=== PATIENT | female | born 2000 | race Caucasian/White ===

== ENCOUNTER 2022-12-22 11:09 | Inpatient (IN) | payer MEDICAID, SELFPAY ==
[2022-12-22] VITALS (51 sets, daily range): BP systolic 97–123; BP diastolic 60–84; PULSE 69–107; RESP 17; TEMP 36.1–37.1; O2SAT 97–99; BMI 33.5
[2022-12-22 11:11] LABS: Actim Prom Positive
[2022-12-22] MEDS: dextrose 5%-lactated ringers 1,000 ML 125 ML IV ×2 (11:49→23:38)
[2022-12-22] MEDS: ampicillin 2,000 MG in sodium chloride 0.9% (plus) 50 ML 100 MG IV (11:49)
[2022-12-22 12:18] LABS: Basophils % 0.4 %; Eosinophils # 0.1 10^3/uL (0.0-0.8); Eosinophils % 1.1 %; Hematocrit 34.7 % (37.0-47.0); Hemoglobin 11.6 g/dL (11.5-15.3); Lymphocytes # 1.2 10^3/uL (0.8-4.8); Lymphocytes % 14.4 %; Mean Corpuscular HGB Conc 33.4 g/dL (30.0-36.0); Mean Corpuscular Hemoglobin 30.3 pg (28.0-34.0); Mean Corpuscular Volume 90.6 fl (81-99); Mean Platelet Volume 11.4 fL (7.4-10.4); Monocytes # 0.7 10^3/uL (0.2-0.9); Monocytes % 8.5 %; Neutrophils # 6.21 10^3/uL (1.8-7.7); Neutrophils % 74.6 %; Nucleated Red Blood Cells % 0 %; Platelet Count 169 10^3/cmm (130-400); Red Blood Count 3.83 10^6/uL (4.1-5.3); Red Cell Distribution Width 12.9 % (12.1-15.1); White Blood Count 8.3 10^3/uL (4.0-10.0)
[2022-12-22] MEDS: lactated ringers 1,000 ML 999 ML IV ×2 (15:15→16:16)
[2022-12-22] MEDS: ampicillin 1,000 MG in sodium chloride 0.9% (plus) 50 ML 100 MG IV ×3 (15:49→23:38)
--- NOTE | 2022-12-22 16:19 | ANES.PREANE2 ---
Pre-Anesthetic Assessment Height/Weight: Height 1.63 m Weight 88.451 kg Temp Pulse Resp BP Pulse Ox O2 Del Method 98.1 F 79 17 110/63 98 Room Air 12/22/22 12:56 12/22/22 16:16 12/22/22 12:56 12/22/22 16:14 12/22/22 16:16 12/22/22 14:04 (twins) Familial anesthetic complications: none Was Beta Yves taken within 24 hours: N/A Was Clonidine taken within 24 hours: N/A Social No alcohol and No tobacco Exam alert, oriented x 3, clear to auscultation bilaterally and regular rate & rhythm Airway Submandibular: within normal limits Cervical ROM: within normal limits Mallampati: Class II Dentition: full History/ROS No significant history except as noted Anesthetic Plan ASA status: 2 Anesthesia: Regional (specify below) (Labor epidural) Medications/Allergies Home Medications Medication Instructions Recorded Confirmed Last Taken Type prenat.vits,willie,fdc-[id number] 1 tab PO DAILY 12/22/22 12/22/22 Unknown History Allergies Allergy/AdvReac Type Severity Reaction Status Date / Time No Known Allergies Allergy Verified 12/22/22 14:07 Current Medications Generic Name Dose Route Start Last Admin Trade Name Freq PRN Reason Stop Dose Admin Dextrose/Lactated Ringer's 1,000 mls @ 125 mls/hr 12/22/22 11:30 12/22/22 11:49 Dextrose 5%-Lactated Ringers IV 125 mls/hr .Q8H JAYSHREE Administration Ampicillin Sodium 1,000 mg/ 50 mls @ 100 mls/hr 12/22/22 15:30 12/22/22 15:49 Sodium Chloride IV 100 mls/hr Q4H JAYSHREE Administration Protocol Oxytocin 30 unit/ Sodium 503 mls @ 1 mls/hr 12/22/22 13:15 12/22/22 15:48 Chloride IV 8 mls/hr .Q24H JAYSHREE 8 mls/hr Titration Protocol Lactated Ringer's 1,000 mls @ 999 mls/hr 12/22/22 14:52 12/22/22 15:15 Lactated Ringers IV 999 mls/hr .Q1H1M PRN Administration See label comments Ropivacaine 100 mg in 50 mls @ 10 mls/hr 12/22/22 14:52 12/22/22 16:00 Naropin Syringe EPIDURAL 10 mls/hr .Q5H PRN Administration LABOR PAIN PFSH Anesthesia Female Reproductive History : 1 Data Anesthesia 12/22/22 11:40 Short CBC 12/22/22 Range/Units 11:40 WBC 8.3 (4.0-10.0) 10^3/uL Hgb 11.6 (11.5-15.3) g/dL Hct 34.7 L (37.0-47.0) % MCV 90.6 (81-99) fl Plt Count 169 (130-400) 10^3/cmm Neut % (Auto) 74.6 % Neut # (Auto) 6.21 (1.8-7.7) 10^3/uL Cardiac Studies: No Data to Display Anesthesia Procedures Epidural Time Out Performed: Yes Consents Signed: Procedure Consent Consent: requested by attending/covering physician, from patient, risks and benefits reviewed and patient agrees to proceed Lumbar Level: L3-L4 Epidural position: sitting Epidural procedure: sterile prep of area, 1% lidocaine to numb the area, 18 g needle, neg for paresthesia, test dose given, 1.5% xylocaine 1:200k epi, 0.2% Ropivacaine bolus ml (5ml), placed PCEA, no systemic response, sterile dressing applied and 0.2% Ropiavacaine @ mls/hr (10) Additional Comments: LILIAN at 4cm, cath at 9cm
[2022-12-23] VITALS (40 sets, daily range): BP systolic 91–186; BP diastolic 51–127; PULSE 71–134; RESP 16–17; TEMP 36.3–36.7; O2SAT 100
[2022-12-23] MEDS: miSOPROStol 200 mcg Tablet 800 MCG PR (08:15)
[2022-12-23] MEDS: dextrose 5%-lactated ringers 1,000 ML 125 ML IV (08:52)
--- NOTE | 2022-12-23 08:52 | PM.OPHPUD ---
Labor & Delivery H&P Update Date of Procedure: December 23, 2022 Date H&P Performed: 12/22/22 Admission Diagnosis: Twin gestation di/di at 37 weeks 1 day SROM
--- NOTE | 2022-12-23 13:41 | ANE.PACU2 ---
Inpatient post-anesthesia follow up: Airway intact: Yes Vital signs: Temperature 97.7 F Pulse Rate 96 Respiratory Rate 16 Blood Pressure 104/55 Pulse Oximetry 100 Oxygen Delivery Me thod Room Air Oxygen Flow Rate Fraction of Inspir ed Oxygen Nausea and vomiting: No Pain level: 2 Mental status: Baseline
[2022-12-23] MEDS: ibuprofen 800 mg tablet PO ×2 (15:45→22:29)
[2022-12-23] MEDS: docusate sodium 100 mg Capsule PO (22:30)
[2022-12-24] VITALS (7 sets, daily range): BP systolic 91–110; BP diastolic 52–70; PULSE 64–82; RESP 16; TEMP 35.8–36.6; O2SAT 98
[2022-12-24 03:12] LABS: Hematocrit 30.1 % (37.0-47.0); Hemoglobin 9.8 g/dL (11.5-15.3); Mean Corpuscular HGB Conc 32.6 g/dL (30.0-36.0); Mean Corpuscular Hemoglobin 29.7 pg (28.0-34.0); Mean Corpuscular Volume 91.2 fl (81-99); Mean Platelet Volume 10.7 fL (7.4-10.4); Platelet Count 117 10^3/cmm (130-400); Red Cell Distribution Width 12.8 % (12.1-15.1); White Blood Count 8.3 10^3/uL (4.0-10.0)
[2022-12-24] MEDS: prenatal vitamin Capsule 1 CAP PO (09:22)
[2022-12-24] MEDS: ibuprofen 800 mg tablet PO ×3 (09:22→23:39)
[2022-12-24] MEDS: docusate sodium 100 mg Capsule PO ×2 (09:22→23:39)
--- NOTE | 2022-12-24 14:31 | PM.DELIVERY ---
Delivery Note: Date of delivery: December Pre-delivery diagnoses: IUP at 37w2d gestation Di/Di twin gestation GBS carrier SROM Procedure: of twin A VAVD of twin B Delivering Physician: Karine Carpenter MD Estimated blood loss (mL): 600 Pre-Delivery Course: This is a 22-year-old G1, P0 at 37 weeks 1 day gestation who was admitted with spontaneous rupture of membranes. She was known to have a dichorionic diamniotic twin gestation. Ultrasound confirmed both infants were vertex. She was noted to be GBS positive and was started on ampicillin protocol. She was not francisco javier regularly on her own and her labor was augmented using Pitocin. She did receive an epidural for pain management. Delivery was planned for and took place in the OR with pediatrics and anesthesia present. Delivery: Twin A rupture of membranes with clear fluid was approximately 18 hours prior to delivery. Mother received multiple doses of ampicillin prior to delivery. Twin A was a normal spontaneous vaginal delivery of a viable female infant weight 2725 g, 6 pounds 0 ounces, Apgars 8 and 9 over an intact perineum. The was suctioned at delivery and placed on the mother's chest. The cord was clamped and cut. The infant was transferred to the warmer where she was evaluated and dried, then she was brought to be skin to skin with mother for a while before we needed to begin position changes. After twin A was delivered twin B was palpated in the vertex position and artificial rupture of membranes was performed with clear fluid. Despite twin B's head being well applied it was still -1 station and maternal contractions palpated to be minimal. We titrated up the Pitocin while allowing her to labor down. The infant's head palpated to be ROP. Multiple position changes were performed over the course of the next few hours. heart tones were reassuring. Even with effective contractions and maternal pushing the 's head remained at 0 station. At which point a Kiwi vacuum was applied and mother pushed through 1 contraction delivering a viable male weight 2693 g, 5 pounds 15 ounces, Apgars 6 and 8 over an intact perineum. Twin B delivered about 4 hours after twin A. The was suctioned at delivery and placed on the mother's chest. The cord was clamped and cut. The was transferred to the warmer where he was evaluated and dried. The placentas were delivered grossly intact and normal to inspection. There were no vaginal lacerations just a few skid royal. After delivery of the placenta mother had some brisk vaginal bleeding that resolved using fundal pressure and 800 mcg of Cytotec. A&P Assessment and plan (1) Twin , delivered vaginally, current hospitalization: Routine care (2) Status post vacuum-assisted vaginal delivery: of Twin B Coding Level of Care Code Acute Code for Chg Fwd Diagnoses Twin , delivered vaginally, current hospitalization O30.009 Status post vacuum-assisted vaginal delivery Z87.59
--- NOTE | 2022-12-24 14:46 | PM.PN ---
Subjective Subjective: day #1 doing well. She is ambulating, she describes average vaginal bleeding. Vitals/I&O/Wt Last Vital Signs Temp 96.6 F L 12/24/22 09:13 Pulse 82 12/24/22 09:14 Resp 16 12/23/22 06:21 BP 91/57 12/24/22 09:14 Pulse Ox 100 12/23/22 04:51 O2 Del Method Room Air 12/23/22 05:15 Physical Exam Narrative: Alert and oriented, sitting up in bed with one of the infants. Heart regular rate and rhythm, lungs clear to auscultation bilaterally, abdomen is soft and nontender, fundus is firm and U -2, extremities have some edema but no calf tenderness. Urinary Catheter Management: Coates: Cath Placed During This Visit: yes, but has since been removed by the nurse Reason for Continuing Indwelling Catheter: Required Immobilization for Trauma or Surgery or Anesthesia Urinary Catheter Date of Insertion: 12/22/22 Urinary Catheter Time of Insertion: 16:33 Date Urinary Catheter Removed: 12/23/22 Time Urinary Catheter Discontinued: 02:35 Data 12/24/22 03:06 A&P Assessment and plan (1) Twin , delivered vaginally, current hospitalization: Routine care (2) Status post vacuum-assisted vaginal delivery: Attestations Medical Necessity Statement*: Routine care Coding Level of Care Code Acute Code for Chg Fwd Diagnoses Twin , delivered vaginally, current hospitalization O30.009 Status post vacuum-assisted vaginal delivery Z87.59
[2022-12-25 05:56] VITALS: BP 107/57; PULSE 65; TEMP 35.9
[2022-12-25 06:00] VITALS: RESP 15
[2022-12-25 08:40] VITALS: BP 102/67; PULSE 89; RESP 16; TEMP 36.8; O2SAT 96
[2022-12-25] MEDS: prenatal vitamin Capsule 1 CAP PO (09:35)
[2022-12-25] MEDS: docusate sodium 100 mg Capsule PO (09:35)
--- NOTE | 2022-12-25 13:09 | P.DS_ITS ---
Discharge Providers Date of Admission: 12/22/22 11:09 Date of Discharge: December 25, 2022 Attending Provider at Admission: Karine Carpenter MD Attending Provider at Discharge: Karine Carpenter MD Diagnoses at Discharge Discharge Diagnosis (1) Twin , delivered vaginally, current hospitalization: Status: Acute (2) Status post vacuum-assisted vaginal delivery: Status: Acute Reason for Visit Reason for Visit: NST Hospital Course Hospital Course This is a 22-year-old G1 now P1002 who had a normal spontaneous vaginal delivery of twin A and a vacuum-assisted vaginal delivery of twin B. She has done well . She is ambulating, tolerating a regular diet, has essentially no pain and is comfortable with discharge home. Physical Exam Narrative: Alert and oriented, sitting up in bed holding , heart regular rate and rhythm, lungs clear to auscultation bilaterally, abdomen is soft and nontender, fundus is firm and U -2, extremities do have some edema but no calf tenderness Urinary Catheter Management: Coates: Cath Placed During This Visit: yes, but has since been removed by the nurse Reason for Continuing Indwelling Catheter: Required Immobilization for Trauma or Surgery or Anesthesia Urinary Catheter Date of Insertion: 12/22/22 Urinary Catheter Time of Insertion: 16:33 Date Urinary Catheter Removed: 12/23/22 Time Urinary Catheter Discontinued: 02:35 Discharge Data Studies Completed and Pending Laboratory Results WBC 8.3 10^3/uL (4.0-10.0) 12/24/22 03:06 RBC 3.30 10^6/uL (4.1-5.3) L 12/24/22 03:06 Hgb 9.8 g/dL (11.5-15.3) L 12/24/22 03:06 Hct 30.1 % (37.0-47.0) L 12/24/22 03:06 MCV 91.2 fl (81-99) 12/24/22 03:06 MCH 29.7 pg (28.0-34.0) 12/24/22 03:06 MCHC 32.6 g/dL (30.0-36.0) 12/24/22 03:06 RDW 12.8 % (12.1-15.1) 12/24/22 03:06 Plt Count 117 10^3/cmm (130-400) L 12/24/22 03:06 MPV 10.7 fL (7.4-10.4) H 12/24/22 03:06 Neut % (Auto) 74.6 % 12/22/22 11:40 Lymph % (Auto) 14.4 % 12/22/22 11:40 [place] % (Auto) 8.5 % 12/22/22 11:40 Eos % (Auto) 1.1 % 12/22/22 11:40 Baso % (Auto) 0.4 % 12/22/22 11:40 Neut # (Auto) 6.21 10^3/uL (1.8-7.7) 12/22/22 11:40 Lymph # (Auto) 1.2 10^3/uL (0.8-4.8) 12/22/22 11:40 [place] # (Auto) 0.7 10^3/uL (0.2-0.9) 12/22/22 11:40 Eos # (Auto) 0.1 10^3/uL (0.0-0.8) 12/22/22 11:40 Baso # (Auto) 0.0 10^3/uL (0.0-0.1) 12/22/22 11:40 Nucleated RBC % (auto) 0 % 12/22/22 11:40 Nucleated RBCs # 0.0 /100WBC 12/22/22 11:40 Insulin-like GF I Positive 12/22/22 10:50 Vitals Last Vital Signs Temp 98.2 F 12/25/22 08:40 Pulse 89 12/25/22 08:40 Resp 16 12/25/22 08:40 BP 102/67 12/25/22 08:40 Pulse Ox 96 12/25/22 08:40 O2 Del Method Room Air 12/25/22 08:40 Discharge Plan Discharge Patient Disposition: Home Condition: Stable Prescriptions: Continued prenat.vits,willie,[id number] Tablet 1 tab PO DAILY Discharge Orders: Discharge Order (Routine); Ordered 12/25/22 Ordered By: Karine Carpenter Referrals: Jahaira Portillo[facility] [employer] [Other] (If interested in applying for Medicaid, Jahaira may be able to help you. ) Discharge Diet: Usual diet Discharge Activity: Limit activity as instructed Patient Instructions: Depression (DC), Bleeding (DC), Preeclampsia and Eclampsia After Delivery (GEN), Hemorrhage (DC), OB Discharge Report, OB Food/Drug Interaction Guide, OB Care at Home, Opioid Safety, OB Home Care, OB Vaginal Deliveries Activity Restrictions/Additional Instructions: Nothing per vagina for 6 weeks Discharge Attestations Time Spent in Discharge Care*: less than 30 min Quality Metrics Clinical Quality Measures [ No reported AMI, CVA or VTE this stay] Coding Level of Care Code Acute Code for Chg Fwd Diagnoses Twin , delivered vaginally, current hospitalization O30.009 Status post vacuum-assisted vaginal delivery Z87.59
[2022-12-25 16:22] VITALS: BP 117/74; PULSE 85
[2022-12-25 16:55] VITALS: BP 117/74; PULSE 85; RESP 16; TEMP 36.5
== END 2022-12-25 16:55 | disposition home or self-care (01) | DRG 807 ==
LOC: OPOB 13:12 → OBGYN 13:12
PROVIDERS: Admitting Provider Family Medicine; Visit Provider Family Medicine
DX: O30.043 Twin pregnancy, dichorionic/diamniotic, third trimester (principal); Z37.2 Twins, both liveborn; O99.824 Streptococcus B carrier state complicating childbirth; Z3A.37 37 weeks gestation of pregnancy
CPT/HCPCS: 36415; 51702; 59025; 59409; 83986; 84112; 85025; 85027; 96374; 96376; 99211; J0290; J2795; J3010; J7040; J7120; J7121